=== PATIENT | male | born 1945 | race Caucasian/White ===

== ENCOUNTER 2018-07-05 08:37 | Inpatient (IN) | payer MEDICARE, OTHER ==
[2018-07-05] MEDS ORDERED: IODIXANOL LOCM 100 ML BTL (11:04)
[2018-07-05] MEDS ORDERED: LIDOCAINE 1% (MDV) 20 ML INJ (11:04)
[2018-07-05] MEDS ORDERED: HEPARIN 1000 UNITS/ML 10 ML INJ (11:04)
[2018-07-05] MEDS ORDERED: VERAPAMIL 5 MG INJ (11:05)
[2018-07-05] MEDS ORDERED: MIDAZOLAM 1 MG/ML 2 ML INJ (11:05)
[2018-07-05] MEDS ORDERED: FENTAnyl 50 MCG/ML VIAL (11:05)
[2018-07-05] MEDS ORDERED: NITROGLYCERIN (IC) 100 MCG/ML INJ (11:05)
[2018-07-05] MEDS ORDERED: BIVALIRUDIN 250MG /NS 50 ML 50 ML IVPB (12:06)
[2018-07-05] MEDS ORDERED: CLOPIDOGREL 300 MG TAB (12:14)
[2018-07-05] MEDS ORDERED: hydrALAzine 20 MG INJ IV ×3 (13:30→18:00)
[2018-07-05] MEDS: ISOSORBIDE DINITRATE 20 MG TAB PO (13:52)
[2018-07-05 16:50] LABS: ADD MAN DIFF? NO
[2018-07-05 16:52] LABS: WHITE BLOOD COUNT 7.8 10^3/ul (4.8-10.8)
[2018-07-05 16:52] LABS: BASOPHILS % 0.3 % (0.0-2.0); EOSINOPHILS # 0.1 10^3/ul (0.0-0.5); EOSINOPHILS % 0.8 % (0.0-7.0); HEMATOCRIT 24.4 % (42.0-52.0); HEMOGLOBIN 8.2 g/dl (14.0-18.0); LYMPHOCYTES # 1.8 10^3/ul (0.8-2.9); LYMPHOCYTES % 23.4 % (15.0-51.0); MEAN CORPUSCULAR HGB CONC 33.6 g/dl (32.0-37.0); MEAN CORPUSCULAR VOLUME 89.4 fl (82.0-101.0); MEAN PLATELET VOLUME 10.2 fl (7.4-10.4); MONOCYTE # 0.5 10^3/ul (0.3-0.9); MONOCYTES % 6.3 % (0.0-11.0); NEUTROPHIL # 5.3 10^3/ul (1.6-7.5); NEUTROPHILS % 67.8 % (39.0-77.0); PLATELET COUNT 136 10^3/UL (140-415); RED BLOOD COUNT 2.73 10^6/ul (4.70-6.10); RED CELL DISTRIBUTION WIDTH 15.6 % (11.5-14.5)
[2018-07-05 16:56] LABS: HOLD TRANSMISSIONS 1
[2018-07-05] MEDS ORDERED: GLUCOSE GEL 15 GRAM TUBE BUCCAL (17:00)
[2018-07-05] MEDS ORDERED: DEXTROSE 50% 50 ML SYRINGE IV ×2 (17:00)
[2018-07-05] MEDS ORDERED: GLUCAGON 1 MG INJ IM (17:00)
[2018-07-05] MEDS ORDERED: GLUCOSE GEL 15 GRAM TUBE PO ×2 (17:00)
[2018-07-05] MEDS: CEFAZOLIN 2 GM/50 ML (PMX) 50 ML IVPB (17:00)
[2018-07-05 17:06] LABS: ALANINE AMINOTRANSFERASE 19 IU/L (13-69); ALBUMIN 3.3 g/dl (3.3-4.9); ALKALINE PHOSPHATASE 107 IU/L (42-121); ANION GAP 11 (5-13); ASPARTATE AMINO TRANSFERASE 16 IU/L (15-46); BILIRUBIN,INDIRECT 0.1 mg/dl (0-1.1); CALCIUM 8.9 mg/dl (8.4-10.2); CARBON DIOXIDE 27 mmol/L (21-31); GLUCOSE 133 mg/dl (70-220); POTASSIUM 4.4 mmol/L (3.5-5.1); TOTAL PROTEIN 6.3 g/dl (6.1-8.1)
[2018-07-05 17:26] LABS: CHLORIDE 96 mmol/L (97-110); SODIUM 134 mmol/L (135-144)
[2018-07-05 17:27] LABS: BILIRUBIN,TOTAL 0.1 mg/dl (0.2-1.3); BLOOD UREA NITROGEN 32 mg/dl (7-20); CREATININE 4.64 mg/dl (0.61-1.24)
[2018-07-05] MEDS: INSULIN ASPART [NOVOLOG] 3 ML PEN SC (17:55)
[2018-07-05] MEDS ORDERED: INSULIN ASPART [NOVOLOG] 3 ML PEN SC (18:00)
[2018-07-05] MEDS: ASPIRIN 81 MG TAB PO (18:07)
[2018-07-05 22:05] LABS: HEPATITIS B SURFACE ANTIGEN NEGATIVE (NEGATIVE)
[2018-07-06] MEDS: HEPARIN 1000 UNITS/ML 10 ML INJ CATHETER (00:36)
[2018-07-06] MEDS: ISOSORBIDE DINITRATE 20 MG TAB PO ×4 (00:56→21:00)
[2018-07-06] MEDS: ATORVASTATIN 80 MG TAB PO ×2 (00:57→21:00)
[2018-07-06] MEDS: METOPROLOL 25 MG TAB PO (00:57)
[2018-07-06] MEDS: INSULIN ASPART [NOVOLOG] 3 ML PEN SC ×5 (01:01→21:00)
[2018-07-06] MEDS: ACCU-CHEK XX (02:00)
[2018-07-06 05:40] LABS: ADD MAN DIFF? NO
[2018-07-06 05:52] LABS: BASOPHIL # 0.1 10^3/ul (0.0-0.1); BASOPHILS % 0.6 % (0.0-2.0); EOSINOPHILS # 0.1 10^3/ul (0.0-0.5); HEMATOCRIT 26.9 % (42.0-52.0); HEMOGLOBIN 8.8 g/dl (14.0-18.0); LYMPHOCYTES # 1.4 10^3/ul (0.8-2.9); LYMPHOCYTES % 16.5 % (15.0-51.0); MEAN CORPUSCULAR HEMOGLOBIN 29.5 pg (29.0-33.0); MEAN CORPUSCULAR HGB CONC 32.7 g/dl (32.0-37.0); MEAN CORPUSCULAR VOLUME 90.3 fl (82.0-101.0); MEAN PLATELET VOLUME 10.4 fl (7.4-10.4); MONOCYTE # 0.6 10^3/ul (0.3-0.9); MONOCYTES % 7.1 % (0.0-11.0); NEUTROPHILS % 73.5 % (39.0-77.0); PLATELET COUNT 155 10^3/UL (140-415); RED BLOOD COUNT 2.98 10^6/ul (4.70-6.10); RED CELL DISTRIBUTION WIDTH 15.3 % (11.5-14.5)
[2018-07-06 05:52] LABS: WHITE BLOOD COUNT 8.2 10^3/ul (4.8-10.8)
[2018-07-06 06:38] LABS: ANION GAP 12 (5-13); BLOOD UREA NITROGEN 16 mg/dl (7-20); CALCIUM 9.1 mg/dl (8.4-10.2); CARBON DIOXIDE 30 mmol/L (21-31); CHLORIDE 98 mmol/L (97-110); CREATININE 2.97 mg/dl (0.61-1.24); GLUCOSE 126 mg/dl (70-220); MAGNESIUM 2.1 mg/dl (1.7-2.5); PHOSPHORUS 3.2 mg/dl (2.5-4.9); POTASSIUM 4.6 mmol/L (3.5-5.1); SODIUM 140 mmol/L (135-144)
[2018-07-06] MEDS: ASPIRIN 81 MG TAB PO (08:07)
[2018-07-06] MEDS: METOPROLOL 50 MG TAB PO ×2 (08:07→21:00)
[2018-07-06] MEDS: ACETAMINOPHEN 325 MG TAB PO (12:01)
[2018-07-06] MEDS: morphine 2 MG INJ IV (13:24)
[2018-07-06] MEDS ORDERED: HYDROCODONE/APAP (5/325) TAB PO (13:30)
[2018-07-06] MEDS: SOD CHLORIDE 0.9% 100 ML (16:19)
[2018-07-06] MEDS: IODIXANOL LOCM 100 ML BTL (16:19)
[2018-07-07] MEDS: NORepinephrine 8MG/250 ML (PMX 250 ML IV (00:30)
[2018-07-07] MEDS: ACCU-CHEK XX ×13 (02:00→23:00)
[2018-07-07] MEDS: INSULIN HUMAN REGULAR 100 UNIT in SOD CHLORIDE 0.9% 99 ML IVPB (02:52)
[2018-07-07 06:04] LABS: ADD MAN DIFF? NO
[2018-07-07 06:10] LABS: BASOPHILS % 0.4 % (0.0-2.0); EOSINOPHILS # 0.2 10^3/ul (0.0-0.5); EOSINOPHILS % 1.5 % (0.0-7.0); HEMATOCRIT 25.9 % (42.0-52.0); HEMOGLOBIN 8.4 g/dl (14.0-18.0); LYMPHOCYTES # 1.9 10^3/ul (0.8-2.9); LYMPHOCYTES % 19.6 % (15.0-51.0); MEAN CORPUSCULAR HEMOGLOBIN 29.5 pg (29.0-33.0); MEAN CORPUSCULAR HGB CONC 32.4 g/dl (32.0-37.0); MEAN CORPUSCULAR VOLUME 90.9 fl (82.0-101.0); MEAN PLATELET VOLUME 11.2 fl (7.4-10.4); MONOCYTE # 0.7 10^3/ul (0.3-0.9); MONOCYTES % 7.3 % (0.0-11.0); NEUTROPHIL # 6.7 10^3/ul (1.6-7.5); NEUTROPHILS % 69.4 % (39.0-77.0); PLATELET COUNT 153 10^3/UL (140-415); RED BLOOD COUNT 2.85 10^6/ul (4.70-6.10); RED CELL DISTRIBUTION WIDTH 15.3 % (11.5-14.5)
[2018-07-07 06:10] LABS: WHITE BLOOD COUNT 9.7 10^3/ul (4.8-10.8)
[2018-07-07] MEDS ORDERED: HEPARIN 1000 UNITS/ML 10 ML INJ ×3 (06:40→09:00)
[2018-07-07] MEDS: ASPIRIN 600 MG SUPP PR (07:00)
[2018-07-07] MEDS: MILRINONE LACTATE 2 MG in SOD CHLORIDE 0.9% 50 ML IV (07:00)
[2018-07-07] MEDS ORDERED: EPINEPHrine 4 MG in DEXTROSE 5% 246 ML IV (07:00)
[2018-07-07] MEDS: HEPARIN (10000 UNITS/ML) 10,000 UNIT, MILRINONE LACTATE 10 MG in SOD CHLORIDE 0.9% 1,00... SC (07:00)
[2018-07-07] MEDS ORDERED: MIDAZOLAM 5 ML ×2 (07:06→09:35)
[2018-07-07] MEDS ORDERED: PHENYLephrine (100 MCG/ML) 5ML SYG ×2 (07:09→09:40)
[2018-07-07 07:12] LABS: ANION GAP 15 (5-13); BLOOD UREA NITROGEN 35 mg/dl (7-20); CARBON DIOXIDE 27 mmol/L (21-31); CHLORIDE 93 mmol/L (97-110); CREATININE 4.95 mg/dl (0.61-1.24); GLUCOSE 157 mg/dl (70-220); MAGNESIUM 2.3 mg/dl (1.7-2.5); PHOSPHORUS 5.2 mg/dl (2.5-4.9); POTASSIUM 4.9 mmol/L (3.5-5.1); SODIUM 135 mmol/L (135-144)
[2018-07-07] MEDS ORDERED: MAGNESIUM SULFATE (MG) 50% 10 ML INJ (07:12)
[2018-07-07] MEDS ORDERED: POTASSIUM CHLORIDE 40 MEQ INJ (07:12)
[2018-07-07] MEDS ORDERED: LIDOCAINE 100 MG SYRINGE (07:13)
[2018-07-07] MEDS ORDERED: CA CHLORIDE 10% 10 ML SYRINGE (07:13)
[2018-07-07] MEDS ORDERED: NA BICARBONATE 8.4% 50 ML SYG ×2 (07:13→23:46)
[2018-07-07] MEDS ORDERED: PHENYLephrine 10 MG INJ ×2 (07:13→13:05)
[2018-07-07] MEDS ORDERED: ALBUMIN HUMAN 25% 100 ML (07:14)
[2018-07-07] MEDS ORDERED: AMINOCAPROIC ACID 5 GM INJ ×2 (07:14→10:34)
[2018-07-07] MEDS ORDERED: MANNITOL 20% 500 ML (07:15)
[2018-07-07 07:42] LABS: INR 1.05; PROTIME 13.8 Sec (11.9-14.9); PT RATIO 1.1
[2018-07-07 07:43] LABS: PARTIAL THROMBOPLASTIN TIME 43.9 Sec (23.0-35.0)
[2018-07-07] MEDS ORDERED: CEFAZOLIN 1 GM INJ ×2 (08:35→10:40)
[2018-07-07] MEDS: ASPIRIN 81 MG TAB PO (09:00)
[2018-07-07] MEDS: VANCOMYCIN 1 GM INJ ×2 (09:11→09:56)
[2018-07-07 09:12] LABS: IMMEDIATE SPIN CROSSMATCH 1
[2018-07-07] MEDS: PAPAVERINE 60 MG INJ (09:12)
[2018-07-07] MEDS ORDERED: FUROSEMIDE 10 ML (09:38)
[2018-07-07] MEDS: SOD CHLORIDE 0.9% 250 ML IV* (09:38)
[2018-07-07] MEDS ORDERED: NITROGLYCERIN 50 MG/D5W 250 ML BTL (10:40)
[2018-07-07] MEDS ORDERED: INSULIN REGULAR, HUMAN 100 UNIT/1 ML 3ML VIAL (10:40)
[2018-07-07] MEDS ORDERED: ISOFLURANE 15 MIN (10:40)
[2018-07-07] MEDS ORDERED: DOPamine-D5W 1.6 MG/ML 250 ML (10:40)
[2018-07-07] MEDS ORDERED: ROCURONIUM 50 MG INJ (10:43)
[2018-07-07] MEDS ORDERED: LIDOCAINE 2% (SDV) 5 ML INJ (10:43)
[2018-07-07] MEDS ORDERED: PROTAMINE 250 MG INJ (10:43)
[2018-07-07] MEDS ORDERED: ETOMIDATE 20 MG INJ (10:43)
[2018-07-07 11:50] LABS: TYPE AND SCREEN 1
[2018-07-07 11:50] LABS: IMMEDIATE SPIN CROSSMATCH 1 4
[2018-07-07] MEDS ORDERED: NEOMYC/POLYMYX/BACIT 3.5GM OPH OINT (11:53)
[2018-07-07] MEDS ORDERED: OXYCODONE/ACETAMINOPHEN (5/325) TAB PO (12:30)
[2018-07-07] MEDS ORDERED: HYDROmorphONE 0.5 MG/0.5 ML SYG IV (12:30)
[2018-07-07] MEDS ORDERED: DEXTROSE 50% 50 ML SYRINGE IV ×2 (12:30)
[2018-07-07] MEDS: ALBUMIN HUMAN 5% 250 ML IV (12:30)
[2018-07-07] MEDS: CEFAZOLIN 1 GM/50 ML (PMX) 50 ML IVPB (12:30)
[2018-07-07] MEDS ORDERED: DOPamine-D5W 1.6 MG/ML 250 ML IV (12:30)
[2018-07-07] MEDS ORDERED: ONDANSETRON 4 MG INJ IV (12:30)
[2018-07-07] MEDS: PHENYLephrine 20MG IN 250 ML 250 ML IV ×4 (12:30→18:31)
[2018-07-07] MEDS ORDERED: NITROGLYCERIN 50 MG/D5W (PMX) 250 ML IV ×2 (12:30→13:00)
[2018-07-07] MEDS ORDERED: ALBUMIN HUMAN 5% 250 ML (12:33)
[2018-07-07 13:32] LABS: ADD MAN DIFF? NO
[2018-07-07 13:34] LABS: BASOPHIL # 0.1 10^3/ul (0.0-0.1); BASOPHILS % 0.4 % (0.0-2.0); EOSINOPHILS # 0.2 10^3/ul (0.0-0.5); EOSINOPHILS % 0.9 % (0.0-7.0); HEMATOCRIT 26.6 % (42.0-52.0); HEMOGLOBIN 8.9 g/dl (14.0-18.0); LYMPHOCYTES # 2.7 10^3/ul (0.8-2.9); MEAN CORPUSCULAR HGB CONC 33.5 g/dl (32.0-37.0); MEAN CORPUSCULAR VOLUME 89.6 fl (82.0-101.0); MONOCYTE # 1.1 10^3/ul (0.3-0.9); MONOCYTES % 4.6 % (0.0-11.0); NEUTROPHIL # 19.6 10^3/ul (1.6-7.5); PLATELET COUNT 149 10^3/UL (140-415); RED BLOOD COUNT 2.97 10^6/ul (4.70-6.10); RED CELL DISTRIBUTION WIDTH 14.8 % (11.5-14.5)
[2018-07-07 13:34] LABS: WHITE BLOOD COUNT 24.5 10^3/ul (4.8-10.8)
[2018-07-07] MEDS: CEFAZOLIN 2 GM/50 ML (PMX) 50 ML IVPB (13:41)
[2018-07-07 13:49] LABS: AADO2 Arterial 169.7 mmHg (7.0-24.0); Allen Test ACCEPTAB; Arterial Blood Gas Oxygen Sat 98.7 mmHG (95.0-100.0); Arterial COHb 0.2 % (0.0-3.0); Arterial Fraction of Oxyhgb 98.1 % (93.0-99.0); Arterial HCO3 22.2 mmol/L (22.0-26.0); Arterial MetHb 0.4 % (0.0-1.5); Arterial pCO2 44.9 mmhg (35-45); MODE VENT - AC; Site A-Line
[2018-07-07 13:54] LABS: INR 1.27; PT RATIO 1.3
[2018-07-07 13:55] LABS: PARTIAL THROMBOPLASTIN TIME 35.1 Sec (23.0-35.0)
[2018-07-07 13:56] LABS: ANION GAP 18 (5-13); BLOOD UREA NITROGEN 29 mg/dl (7-20); CALCIUM 8.7 mg/dl (8.4-10.2); CARBON DIOXIDE 21 mmol/L (21-31); CHLORIDE 100 mmol/L (97-110); CREATININE 4.54 mg/dl (0.61-1.24); GLUCOSE 150 mg/dl (70-220); MAGNESIUM 3.9 mg/dl (1.7-2.5); POTASSIUM 3.6 mmol/L (3.5-5.1); SODIUM 139 mmol/L (135-144)
[2018-07-07] MEDS ORDERED: NORepinephrine 8MG/250 ML (PMX 250 ML IV (14:00)
[2018-07-07] MEDS: DOPamine-D5W 1.6 MG/ML 250 ML IV (14:39)
[2018-07-07] MEDS: INSULIN HUMAN REGULAR 100 UNIT in SOD CHLORIDE 0.9% 99 ML IV (14:40)
[2018-07-07] MEDS: POTASSIUM CHLORIDE 40 MEQ, CALCIUM CHLORIDE 10% 1 GM in DEXTROSE 5%-0.225% NACL 1,000 ML IV (16:13)
[2018-07-07 18:50] LABS: ADD MAN DIFF? NO
[2018-07-07 18:52] LABS: WHITE BLOOD COUNT 17.2 10^3/ul (4.8-10.8)
[2018-07-07 18:52] LABS: BASOPHIL # 0.1 10^3/ul (0.0-0.1); BASOPHILS % 0.3 % (0.0-2.0); EOSINOPHILS # 0.2 10^3/ul (0.0-0.5); EOSINOPHILS % 0.9 % (0.0-7.0); HEMATOCRIT 24.8 % (42.0-52.0); HEMOGLOBIN 8.3 g/dl (14.0-18.0); LYMPHOCYTES # 0.9 10^3/ul (0.8-2.9); LYMPHOCYTES % 5.3 % (15.0-51.0); MEAN CORPUSCULAR HEMOGLOBIN 29.7 pg (29.0-33.0); MEAN CORPUSCULAR HGB CONC 33.5 g/dl (32.0-37.0); MEAN CORPUSCULAR VOLUME 88.9 fl (82.0-101.0); MEAN PLATELET VOLUME 10.2 fl (7.4-10.4); MONOCYTE # 0.9 10^3/ul (0.3-0.9); NEUTROPHIL # 14.9 10^3/ul (1.6-7.5); NEUTROPHILS % 86.4 % (39.0-77.0); PLATELET COUNT 139 10^3/UL (140-415); RED BLOOD COUNT 2.79 10^6/ul (4.70-6.10); RED CELL DISTRIBUTION WIDTH 15.2 % (11.5-14.5)
[2018-07-07 19:08] LABS: ANION GAP 16 (5-13); BLOOD UREA NITROGEN 30 mg/dl (7-20); CALCIUM 8.6 mg/dl (8.4-10.2); CARBON DIOXIDE 19 mmol/L (21-31); CHLORIDE 99 mmol/L (97-110); CREATININE 4.98 mg/dl (0.61-1.24); GLUCOSE 202 mg/dl (70-220); MAGNESIUM 3.5 mg/dl (1.7-2.5); POTASSIUM 3.5 mmol/L (3.5-5.1); SODIUM 134 mmol/L (135-144)
[2018-07-07 19:12] LABS: PROTIME 15.3 Sec (11.9-14.9); PT RATIO 1.2
[2018-07-07 19:13] LABS: PARTIAL THROMBOPLASTIN TIME 34.7 Sec (23.0-35.0)
[2018-07-07] MEDS: FAMOTIDINE 20 MG INJ IV (20:26)
[2018-07-07 20:44] LABS: Arterial Base Excess -5.1 mmol/L (-3.0-3); Arterial Blood Gas Oxygen Sat 97.8 mmHG (95.0-100.0); Arterial COHb 0.3 % (0.0-3.0); Arterial Fraction of Oxyhgb 96.7 % (93.0-99.0); Arterial HCO3 19.9 mmol/L (22.0-26.0); Arterial MetHb 0.8 % (0.0-1.5); Arterial pCO2 36.2 mmhg (35-45); Blood Gas Mean Airway Pressure 14; MODE VENT - AC; Site A-Line
[2018-07-07] MEDS: ATORVASTATIN 80 MG TAB PO (21:00)
[2018-07-07] MEDS: HYDROmorphONE 0.5 MG/0.5 ML SYG IV (22:38)
[2018-07-07 23:35] LABS: AADO2 Arterial 143.8 mmHg (7.0-24.0); Arterial Base Excess -7.3 mmol/L (-3.0-3); Arterial COHb 0.3 % (0.0-3.0); Arterial Fraction of Oxyhgb 95.1 % (93.0-99.0); Arterial HCO3 18.8 mmol/L (22.0-26.0); Arterial MetHb 0.6 % (0.0-1.5); Arterial pCO2 39.8 mmhg (35-45); MODE VENT - CPAP; Site A-Line
[2018-07-07] MEDS: NA BICARBONATE 8.4% 50 ML SYG IV (23:52)
[2018-07-08] MEDS: ACCU-CHEK XX ×24 (00:21→23:21)
[2018-07-08 01:12] LABS: ADD MAN DIFF? NO
[2018-07-08 01:17] LABS: WHITE BLOOD COUNT 15.7 10^3/ul (4.8-10.8)
[2018-07-08 01:17] LABS: BASOPHIL # 0.1 10^3/ul (0.0-0.1); BASOPHILS % 0.4 % (0.0-2.0); EOSINOPHILS # 0.2 10^3/ul (0.0-0.5); EOSINOPHILS % 1.2 % (0.0-7.0); HEMATOCRIT 23.7 % (42.0-52.0); HEMOGLOBIN 7.7 g/dl (14.0-18.0); LYMPHOCYTES # 0.8 10^3/ul (0.8-2.9); LYMPHOCYTES % 5.4 % (15.0-51.0); MEAN CORPUSCULAR HEMOGLOBIN 29.6 pg (29.0-33.0); MEAN CORPUSCULAR HGB CONC 32.5 g/dl (32.0-37.0); MEAN CORPUSCULAR VOLUME 91.2 fl (82.0-101.0); MEAN PLATELET VOLUME 11.5 fl (7.4-10.4); MONOCYTE # 1.4 10^3/ul (0.3-0.9); MONOCYTES % 9.1 % (0.0-11.0); NEUTROPHIL # 12.8 10^3/ul (1.6-7.5); NEUTROPHILS % 81.9 % (39.0-77.0); PLATELET COUNT 143 10^3/UL (140-415); RED CELL DISTRIBUTION WIDTH 15.6 % (11.5-14.5)
[2018-07-08] MEDS: CEFAZOLIN 1 GM/50 ML (PMX) 50 ML IVPB ×2 (01:17→12:48)
[2018-07-08 01:19] LABS: AADO2 Arterial 115.6 mmHg (7.0-24.0); Arterial Base Excess -4.9 mmol/L (-3.0-3); Arterial Blood Gas Oxygen Sat 94.6 mmHG (95.0-100.0); Arterial COHb 0.3 % (0.0-3.0); Arterial Fraction of Oxyhgb 93.7 % (93.0-99.0); Arterial HCO3 21.9 mmol/L (22.0-26.0); Arterial MetHb 0.6 % (0.0-1.5); Arterial pCO2 48.9 mmhg (35-45); MODE NASAL CANNULA; Site A-Line
[2018-07-08 01:34] LABS: MAGNESIUM 3.2 mg/dl (1.7-2.5)
[2018-07-08 01:34] LABS: ANION GAP 17 (5-13); BLOOD UREA NITROGEN 32 mg/dl (7-20); CALCIUM 8.6 mg/dl (8.4-10.2); CARBON DIOXIDE 21 mmol/L (21-31); CHLORIDE 98 mmol/L (97-110); CREATININE 5.14 mg/dl (0.61-1.24); GLUCOSE 91 mg/dl (70-220); POTASSIUM 4.7 mmol/L (3.5-5.1); SODIUM 136 mmol/L (135-144)
[2018-07-08] MEDS: NORepinephrine 8MG/250 ML (PMX 250 ML IV (01:43)
[2018-07-08] MEDS: PHENYLephrine 20MG IN 250 ML 250 ML IV (01:45)
[2018-07-08] MEDS: DOPamine-D5W 1.6 MG/ML 250 ML IV (02:13)
[2018-07-08 03:04] LABS: AADO2 Arterial 150.6 mmHg (7.0-24.0); Arterial Base Excess -5.5 mmol/L (-3.0-3); Arterial Blood Gas Oxygen Sat 95.6 mmHG (95.0-100.0); Arterial COHb 0.3 % (0.0-3.0); Arterial Fraction of Oxyhgb 94.6 % (93.0-99.0); Arterial HCO3 20.3 mmol/L (22.0-26.0); Arterial MetHb 0.7 % (0.0-1.5); Arterial pCO2 40.8 mmhg (35-45); Blood Gas IEPAP 15/5; Blood Gas PS 10; MODE MASK - BIPAP; Site A-Line
[2018-07-08] MEDS: INSULIN HUMAN REGULAR 100 UNIT in SOD CHLORIDE 0.9% 99 ML IV (03:18)
[2018-07-08 04:45] LABS: ADD MAN DIFF? NO
[2018-07-08 04:48] LABS: WHITE BLOOD COUNT 16.5 10^3/ul (4.8-10.8)
[2018-07-08 04:48] LABS: BASOPHIL # 0.1 10^3/ul (0.0-0.1); BASOPHILS % 0.4 % (0.0-2.0); EOSINOPHILS # 0.2 10^3/ul (0.0-0.5); EOSINOPHILS % 0.9 % (0.0-7.0); HEMATOCRIT 23.5 % (42.0-52.0); HEMOGLOBIN 7.7 g/dl (14.0-18.0); LYMPHOCYTES # 0.9 10^3/ul (0.8-2.9); LYMPHOCYTES % 5.7 % (15.0-51.0); MEAN CORPUSCULAR HEMOGLOBIN 29.7 pg (29.0-33.0); MEAN CORPUSCULAR HGB CONC 32.8 g/dl (32.0-37.0); MEAN CORPUSCULAR VOLUME 90.7 fl (82.0-101.0); MONOCYTE # 1.5 10^3/ul (0.3-0.9); MONOCYTES % 9.1 % (0.0-11.0); NEUTROPHIL # 13.6 10^3/ul (1.6-7.5); NEUTROPHILS % 82.3 % (39.0-77.0); PLATELET COUNT 146 10^3/UL (140-415); RED BLOOD COUNT 2.59 10^6/ul (4.70-6.10); RED CELL DISTRIBUTION WIDTH 15.8 % (11.5-14.5)
[2018-07-08 05:01] LABS: AADO2 Arterial 141.1 mmHg (7.0-24.0); Arterial Base Excess -6.7 mmol/L (-3.0-3); Arterial COHb 0.3 % (0.0-3.0); Arterial Fraction of Oxyhgb 96.2 % (93.0-99.0); Arterial HCO3 18.8 mmol/L (22.0-26.0); Arterial MetHb 0.5 % (0.0-1.5); Arterial pCO2 37.5 mmhg (35-45); Blood Gas IEPAP 15/5; Blood Gas PS 10; MODE MASK - BIPAP; Site A-Line
[2018-07-08 05:07] LABS: INR 1.26; PROTIME 15.9 Sec (11.9-14.9); PT RATIO 1.2
[2018-07-08 05:13] LABS: ANION GAP 18 (5-13); BLOOD UREA NITROGEN 33 mg/dl (7-20); CALCIUM 8.8 mg/dl (8.4-10.2); CARBON DIOXIDE 20 mmol/L (21-31); CHLORIDE 98 mmol/L (97-110); CREATININE 5.62 mg/dl (0.61-1.24); GLUCOSE 117 mg/dl (70-220); MAGNESIUM 3.2 mg/dl (1.7-2.5); PHOSPHORUS 6.3 mg/dl (2.5-4.9); SODIUM 136 mmol/L (135-144)
[2018-07-08] MEDS ORDERED: PROPOFOL 100 ML (05:33)
[2018-07-08] MEDS: PROPOFOL 100 ML IV ×2 (06:00→17:58)
[2018-07-08] MEDS ORDERED: HEPARIN 1000 UNITS/ML 10 ML INJ (06:05)
[2018-07-08] MEDS: POTASSIUM CHLORIDE 40 MEQ, CALCIUM CHLORIDE 10% 1 GM in DEXTROSE 5%-0.225% NACL 1,000 ML IV ×2 (07:10→09:36)
[2018-07-08] MEDS: HEPARIN (100 UNITS/ML) 5 ML SYG CATHETER (07:55)
[2018-07-08] MEDS: ASPIRIN 81 MG TAB PO ×2 (08:19→13:33)
[2018-07-08 08:36] LABS: AADO2 Arterial 360.1 mmHg (7.0-24.0); Arterial Base Excess -6.6 mmol/L (-3.0-3); Arterial Blood Gas Oxygen Sat 99.2 mmHG (95.0-100.0); Arterial COHb 0.1 % (0.0-3.0); Arterial Fraction of Oxyhgb 98.2 % (93.0-99.0); Arterial MetHb 0.9 % (0.0-1.5); Arterial pCO2 31.9 mmhg (35-45); MODE VENT - AC; Site A-Line
[2018-07-08] MEDS: FAMOTIDINE 20 MG INJ IV (08:41)
[2018-07-08] MEDS: EPOETIN 10000 UNITS/1 ML INJ (ESRD) SC (08:43)
[2018-07-08] MEDS: HEPARIN 1000 UNITS/ML 10 ML INJ CATHETER (12:22)
[2018-07-08 12:41] LABS: HEMATOCRIT 23.5 % (42.0-52.0)
[2018-07-08] MEDS: FENTAnyl (DRIP) 1000 mcg/100mL 100 ML IV (13:28)
[2018-07-08] MEDS: ACETAMINOPHEN 325 MG TAB PO (21:00)
[2018-07-08] MEDS: ATORVASTATIN 80 MG TAB PO (21:00)
[2018-07-09] MEDS: ACCU-CHEK XX ×24 (00:39→22:36)
[2018-07-09 05:09] LABS: AADO2 Arterial 151.7 mmHg (7.0-24.0); Arterial Base Excess -2.4 mmol/L (-3.0-3); Arterial Blood Gas Oxygen Sat 96.8 mmHG (95.0-100.0); Arterial COHb 0.4 % (0.0-3.0); Arterial Fraction of Oxyhgb 95.7 % (93.0-99.0); Arterial HCO3 21.3 mmol/L (22.0-26.0); Arterial MetHb 0.7 % (0.0-1.5); Arterial pCO2 31.6 mmhg (35-45); MODE VENT - AC; Site A-Line
[2018-07-09 05:18] LABS: ADD MAN DIFF? NO
[2018-07-09 05:21] LABS: ABNORMAL IP MESSAGE 1; BASOPHIL # 0.1 10^3/ul (0.0-0.1); BASOPHILS % 0.3 % (0.0-2.0); EOSINOPHILS % 0.2 % (0.0-7.0); LYMPHOCYTES # 1.3 10^3/ul (0.8-2.9); MEAN CORPUSCULAR HEMOGLOBIN 29.8 pg (29.0-33.0); MEAN CORPUSCULAR HGB CONC 32.5 g/dl (32.0-37.0); MEAN CORPUSCULAR VOLUME 91.7 fl (82.0-101.0); MONOCYTE # 1.1 10^3/ul (0.3-0.9); NEUTROPHIL # 15.4 10^3/ul (1.6-7.5); NEUTROPHILS % 85.6 % (39.0-77.0); PLATELET COUNT 135 10^3/UL (140-415); POSITIVE DIFF @See below; RED BLOOD COUNT 2.18 10^6/ul (4.70-6.10); RED CELL DISTRIBUTION WIDTH 15.9 % (11.5-14.5)
[2018-07-09] MEDS: PROPOFOL 100 ML IV ×2 (05:30→09:56)
[2018-07-09 05:41] LABS: HEMOGLOBIN 6.5 g/dl (14.0-18.0)
[2018-07-09 05:48] LABS: LACTIC ACID 1.4 mmol/L (0.5-2.0)
[2018-07-09 05:53] LABS: ANION GAP 17 (5-13); BLOOD UREA NITROGEN 27 mg/dl (7-20); CALCIUM 8.3 mg/dl (8.4-10.2); CARBON DIOXIDE 22 mmol/L (21-31); CHLORIDE 95 mmol/L (97-110); CREATININE 4.92 mg/dl (0.61-1.24); GLUCOSE 139 mg/dl (70-220); MAGNESIUM 2.8 mg/dl (1.7-2.5); PHOSPHORUS 5.9 mg/dl (2.5-4.9); POTASSIUM 5.3 mmol/L (3.5-5.1); SODIUM 134 mmol/L (135-144)
[2018-07-09] MEDS: FAMOTIDINE 20 MG INJ IV (07:58)
[2018-07-09] MEDS: NORepinephrine 8MG/250 ML (PMX 250 ML IV (07:59)
[2018-07-09] MEDS: FENTAnyl (DRIP) 1000 mcg/100mL 100 ML IV (07:59)
[2018-07-09] MEDS: ASPIRIN 325 MG TAB PO (08:56)
[2018-07-09] MEDS: CEFEPIME 2GM/50 ML (PMX) 50 ML IVPB (13:42)
[2018-07-09 19:31] LABS: IMMEDIATE SPIN CROSSMATCH 1 2
[2018-07-09] MEDS: HEPARIN 1000 UNITS/ML 10 ML INJ CATHETER (20:36)
[2018-07-09] MEDS: ATORVASTATIN 80 MG TAB PO (21:54)
[2018-07-10] MEDS: ACCU-CHEK XX ×24 (01:30→23:30)
[2018-07-10] MEDS: PROPOFOL 100 ML IV ×2 (01:55→17:30)
[2018-07-10] MEDS: FENTAnyl (DRIP) 1000 mcg/100mL 100 ML IV (05:24)
[2018-07-10 06:22] LABS: ADD MAN DIFF? NO
[2018-07-10 06:31] LABS: WHITE BLOOD COUNT 18.5 10^3/ul (4.8-10.8)
[2018-07-10 06:31] LABS: BASOPHIL # 0.1 10^3/ul (0.0-0.1); BASOPHILS % 0.4 % (0.0-2.0); EOSINOPHILS % 0.2 % (0.0-7.0); HEMATOCRIT 27.3 % (42.0-52.0); HEMOGLOBIN 9.2 g/dl (14.0-18.0); LYMPHOCYTES # 0.8 10^3/ul (0.8-2.9); LYMPHOCYTES % 4.1 % (15.0-51.0); MEAN CORPUSCULAR HEMOGLOBIN 30.3 pg (29.0-33.0); MEAN CORPUSCULAR HGB CONC 33.7 g/dl (32.0-37.0); MEAN CORPUSCULAR VOLUME 89.8 fl (82.0-101.0); MEAN PLATELET VOLUME 11.8 fl (7.4-10.4); MONOCYTE # 0.7 10^3/ul (0.3-0.9); MONOCYTES % 3.7 % (0.0-11.0); NEUTROPHIL # 16.8 10^3/ul (1.6-7.5); NEUTROPHILS % 90.6 % (39.0-77.0); PLATELET COUNT 154 10^3/UL (140-415); RED BLOOD COUNT 3.04 10^6/ul (4.70-6.10)
[2018-07-10] MEDS ORDERED: ETOMIDATE 20 MG INJ (07:00)
[2018-07-10] MEDS ORDERED: ROCURONIUM 50 MG INJ (07:00)
[2018-07-10 07:08] LABS: ANION GAP 16 (5-13); BLOOD UREA NITROGEN 24 mg/dl (7-20); CALCIUM 8.5 mg/dl (8.4-10.2); CARBON DIOXIDE 21 mmol/L (21-31); CHLORIDE 100 mmol/L (97-110); CREATININE 4.23 mg/dl (0.61-1.24); GLUCOSE 125 mg/dl (70-220); MAGNESIUM 2.7 mg/dl (1.7-2.5); PHOSPHORUS 5.7 mg/dl (2.5-4.9); SODIUM 137 mmol/L (135-144)
[2018-07-10 07:15] LABS: LACTIC ACID 1.2 mmol/L (0.5-2.0)
[2018-07-10] MEDS: ASPIRIN 325 MG TAB PO (09:13)
[2018-07-10] MEDS: FAMOTIDINE 20 MG INJ IV (09:13)
[2018-07-10] MEDS: CEFEPIME 2GM/50 ML (PMX) 50 ML IVPB (12:42)
[2018-07-10] MEDS ORDERED: NITROGLYCERIN 50 MG/D5W (PMX) 250 ML IV (15:45)
[2018-07-10] MEDS ORDERED: VANCOMYCIN IV PER PHARMACY XX (17:00)
[2018-07-10] MEDS: EPOETIN 10000 UNITS/1 ML INJ (ESRD) SC (17:33)
[2018-07-10] MEDS: [UNRECOGNIZED DRUG - OTHER] XX (18:08)
[2018-07-10 18:52] LABS: VANCOMYCIN,RANDOM < 5.0 ug/ml
[2018-07-10 19:43] LABS: AADO2 Arterial 161.7 mmHg (7.0-24.0); Arterial Base Excess -3.3 mmol/L (-3.0-3); Arterial Blood Gas Oxygen Sat 95.2 mmHG (95.0-100.0); Arterial COHb 0.3 % (0.0-3.0); Arterial Fraction of Oxyhgb 94.6 % (93.0-99.0); Arterial MetHb 0.3 % (0.0-1.5); Arterial pCO2 35.1 mmhg (35-45); Blood Gas PS 8; MODE VENT - CPAP; Site A-Line
[2018-07-10] MEDS: VANCOMYCIN HCL 1.75 GM in SOD CHLORIDE 0.9% 500 ML IVPB (19:54)
[2018-07-10 20:00] LABS: AADO2 Arterial 400.8 mmHg (7.0-24.0); Arterial Base Excess -6.8 mmol/L (-3.0-3); Arterial Blood Gas Oxygen Sat 99.3 mmHG (95.0-100.0); Arterial COHb 0.2 % (0.0-3.0); Arterial Fraction of Oxyhgb 98.2 % (93.0-99.0); Arterial HCO3 19.6 mmol/L (22.0-26.0); Arterial MetHb 0.9 % (0.0-1.5); Arterial pCO2 44.3 mmhg (35-45); Blood Gas Low PEEP Setting 0 cmH2O; MODE VENT - AC; Site A-Line
[2018-07-10] MEDS: INSULIN HUMAN REGULAR 100 UNIT in SOD CHLORIDE 0.9% 99 ML IV (20:08)
[2018-07-10] MEDS ORDERED: VANCOMYCIN HCL 1.75 GM in SOD CHLORIDE 0.9% 500 ML IVPB (20:30)
[2018-07-11] MEDS: ATORVASTATIN 80 MG TAB PO ×2 (00:16→20:00)
[2018-07-11] MEDS: ACCU-CHEK XX ×25 (01:30→23:39)
[2018-07-11] MEDS: FENTAnyl (DRIP) 1000 mcg/100mL 100 ML IV ×2 (04:01→19:52)
[2018-07-11 05:22] LABS: ADD MAN DIFF? NO
[2018-07-11 05:25] LABS: BASOPHIL # 0.1 10^3/ul (0.0-0.1); BASOPHILS % 0.3 % (0.0-2.0); EOSINOPHILS # 0.1 10^3/ul (0.0-0.5); EOSINOPHILS % 0.3 % (0.0-7.0); HEMATOCRIT 25.2 % (42.0-52.0); HEMOGLOBIN 8.4 g/dl (14.0-18.0); LYMPHOCYTES # 0.8 10^3/ul (0.8-2.9); LYMPHOCYTES % 4.6 % (15.0-51.0); MEAN CORPUSCULAR HEMOGLOBIN 30.1 pg (29.0-33.0); MEAN CORPUSCULAR HGB CONC 33.3 g/dl (32.0-37.0); MEAN CORPUSCULAR VOLUME 90.3 fl (82.0-101.0); MEAN PLATELET VOLUME 11.3 fl (7.4-10.4); MONOCYTE # 0.9 10^3/ul (0.3-0.9); MONOCYTES % 5.1 % (0.0-11.0); NEUTROPHIL # 15.8 10^3/ul (1.6-7.5); NEUTROPHILS % 88.7 % (39.0-77.0); PLATELET COUNT 144 10^3/UL (140-415); RED BLOOD COUNT 2.79 10^6/ul (4.70-6.10); RED CELL DISTRIBUTION WIDTH 15.9 % (11.5-14.5)
[2018-07-11 05:25] LABS: WHITE BLOOD COUNT 17.8 10^3/ul (4.8-10.8)
[2018-07-11 05:53] LABS: ANION GAP 20 (5-13); BLOOD UREA NITROGEN 44 mg/dl (7-20); CALCIUM 8.3 mg/dl (8.4-10.2); CARBON DIOXIDE 18 mmol/L (21-31); CHLORIDE 100 mmol/L (97-110); CREATININE 6.06 mg/dl (0.61-1.24); GLUCOSE 116 mg/dl (70-220); MAGNESIUM 2.9 mg/dl (1.7-2.5); PHOSPHORUS 6.5 mg/dl (2.5-4.9); POTASSIUM 4.9 mmol/L (3.5-5.1); SODIUM 138 mmol/L (135-144)
[2018-07-11] MEDS: PROPOFOL 100 ML IV ×3 (06:31→19:59)
[2018-07-11] MEDS ORDERED: NORepinephrine 4 MG INJ (07:15)
[2018-07-11] MEDS ORDERED: ALBUMIN HUMAN 25% 100 ML (07:18)
[2018-07-11] MEDS: NORepinephrine 8MG/250 ML (PMX 250 ML IV (07:45)
[2018-07-11] MEDS: ALBUMIN HUMAN 25% 100 ML IV (07:49)
[2018-07-11] MEDS: HEPARIN 1000 UNITS/ML 10 ML INJ CATHETER (09:34)
[2018-07-11] MEDS: ASPIRIN 325 MG TAB PO (10:05)
[2018-07-11 11:49] LABS: AADO2 Arterial 151.5 mmHg (7.0-24.0); Allen Test ACCEPTAB; Arterial COHb 0.3 % (0.0-3.0); Arterial Fraction of Oxyhgb 96.4 % (93.0-99.0); Arterial MetHb 0.3 % (0.0-1.5); Arterial pCO2 28.5 mmhg (35-45); MODE VENT - AC; Site Right Radial
[2018-07-11] MEDS: CEFEPIME 2GM/50 ML (PMX) 50 ML IVPB (12:34)
[2018-07-12] MEDS: ACCU-CHEK XX ×23 (01:05→23:29)
[2018-07-12 05:13] LABS: ADD MAN DIFF? NO
[2018-07-12 05:27] LABS: WHITE BLOOD COUNT 18.6 10^3/ul (4.8-10.8)
[2018-07-12 05:27] LABS: BASOPHILS % 0.2 % (0.0-2.0); EOSINOPHILS # 0.1 10^3/ul (0.0-0.5); EOSINOPHILS % 0.6 % (0.0-7.0); HEMATOCRIT 24.6 % (42.0-52.0); HEMOGLOBIN 7.9 g/dl (14.0-18.0); LYMPHOCYTES # 1.3 10^3/ul (0.8-2.9); LYMPHOCYTES % 6.7 % (15.0-51.0); MEAN CORPUSCULAR HEMOGLOBIN 29.8 pg (29.0-33.0); MEAN CORPUSCULAR HGB CONC 32.1 g/dl (32.0-37.0); MEAN CORPUSCULAR VOLUME 92.8 fl (82.0-101.0); MEAN PLATELET VOLUME 10.9 fl (7.4-10.4); MONOCYTES % 5.4 % (0.0-11.0); NEUTROPHILS % 86.3 % (39.0-77.0); PLATELET COUNT 142 10^3/UL (140-415); RED BLOOD COUNT 2.65 10^6/ul (4.70-6.10); RED CELL DISTRIBUTION WIDTH 16.5 % (11.5-14.5)
[2018-07-12 05:46] LABS: ANION GAP 19 (5-13); BLOOD UREA NITROGEN 39 mg/dl (7-20); CALCIUM 8.4 mg/dl (8.4-10.2); CARBON DIOXIDE 18 mmol/L (21-31); CHLORIDE 99 mmol/L (97-110); CREATININE 5.26 mg/dl (0.61-1.24); GLUCOSE 168 mg/dl (70-220); MAGNESIUM 2.7 mg/dl (1.7-2.5); PHOSPHORUS 5.8 mg/dl (2.5-4.9); POTASSIUM 4.8 mmol/L (3.5-5.1); SODIUM 136 mmol/L (135-144)
[2018-07-12 05:46] LABS: VANCOMYCIN,RANDOM 16.7 ug/ml
[2018-07-12] MEDS: ASPIRIN 325 MG TAB PO (08:13)
[2018-07-12] MEDS: FENTAnyl (DRIP) 1000 mcg/100mL 100 ML IV ×2 (08:25→19:42)
[2018-07-12] MEDS: PANTOPRAZOLE (EC) 40 MG TAB PO ×2 (11:14→17:11)
[2018-07-12] MEDS: CEFEPIME 2GM/50 ML (PMX) 50 ML IVPB (11:15)
[2018-07-12 11:50] LABS: TROPONIN-I 0.874 ng/ml (0.000-0.120)
[2018-07-12] MEDS ORDERED: VANCOMYCIN 1 GM 250 ML IVPB (14:00)
[2018-07-12] MEDS: IBUPROFEN 600 MG TAB GTB ×2 (14:15→21:22)
[2018-07-12] MEDS: INSULIN HUMAN REGULAR 100 UNIT in SOD CHLORIDE 0.9% 99 ML IV (15:18)
[2018-07-12] MEDS: PROPOFOL 100 ML IV (17:06)
[2018-07-12] MEDS: EPOETIN 10000 UNITS/1 ML INJ (ESRD) SC (17:12)
[2018-07-12 17:21] LABS: TROPONIN-I 0.839 ng/ml (0.000-0.120)
[2018-07-12] MEDS: ALTEPLASE (CATHFLO) 2 MG INJ CATHETER (17:54)
[2018-07-12] MEDS: ATORVASTATIN 80 MG TAB PO (21:21)
[2018-07-12] MEDS: MEROPENEM 500MG/50 ML (PMX) 50 ML IVPB (21:22)
[2018-07-13] MEDS: ACCU-CHEK XX ×24 (00:36→22:48)
[2018-07-13] MEDS: PROPOFOL 100 ML IV ×2 (05:30→17:30)
[2018-07-13 05:49] LABS: ADD MAN DIFF? NO
[2018-07-13 05:53] LABS: BASOPHILS % 0.2 % (0.0-2.0); EOSINOPHILS # 0.4 10^3/ul (0.0-0.5); EOSINOPHILS % 2.3 % (0.0-7.0); HEMATOCRIT 26.4 % (42.0-52.0); HEMOGLOBIN 8.5 g/dl (14.0-18.0); LYMPHOCYTES # 0.8 10^3/ul (0.8-2.9); LYMPHOCYTES % 4.5 % (15.0-51.0); MEAN CORPUSCULAR HEMOGLOBIN 29.7 pg (29.0-33.0); MEAN CORPUSCULAR HGB CONC 32.2 g/dl (32.0-37.0); MEAN CORPUSCULAR VOLUME 92.3 fl (82.0-101.0); MEAN PLATELET VOLUME 11.2 fl (7.4-10.4); MONOCYTES % 5.6 % (0.0-11.0); NEUTROPHIL # 15.7 10^3/ul (1.6-7.5); NEUTROPHILS % 86.6 % (39.0-77.0); PLATELET COUNT 141 10^3/UL (140-415); RED BLOOD COUNT 2.86 10^6/ul (4.70-6.10); RED CELL DISTRIBUTION WIDTH 16.3 % (11.5-14.5)
[2018-07-13 05:53] LABS: WHITE BLOOD COUNT 18.1 10^3/ul (4.8-10.8)
[2018-07-13] MEDS: PANTOPRAZOLE (EC) 40 MG TAB PO ×2 (05:58→17:51)
[2018-07-13] MEDS: IBUPROFEN 600 MG TAB GTB ×2 (05:59→13:56)
[2018-07-13 07:03] LABS: ANION GAP 18 (5-13); BLOOD UREA NITROGEN 48 mg/dl (7-20); CALCIUM 8.7 mg/dl (8.4-10.2); CARBON DIOXIDE 22 mmol/L (21-31); CHLORIDE 99 mmol/L (97-110); CREATININE 6.46 mg/dl (0.61-1.24); GLUCOSE 133 mg/dl (70-220); MAGNESIUM 2.8 mg/dl (1.7-2.5); PHOSPHORUS 5.7 mg/dl (2.5-4.9); POTASSIUM 4.7 mmol/L (3.5-5.1); SODIUM 139 mmol/L (135-144)
[2018-07-13] MEDS: MEROPENEM 500MG/50 ML (PMX) 50 ML IVPB ×2 (08:24→20:50)
[2018-07-13] MEDS: ASPIRIN 325 MG TAB PO (08:31)
[2018-07-13] MEDS: FENTAnyl (DRIP) 1000 mcg/100mL 100 ML IV (08:31)
[2018-07-13] MEDS: ATORVASTATIN 80 MG TAB PO (20:50)
[2018-07-13] MEDS: INSULIN HUMAN REGULAR 100 UNIT in SOD CHLORIDE 0.9% 99 ML IV (20:54)
[2018-07-13] MEDS: IOHEXOL 300MG/ML 150 ML BTL (22:49)
[2018-07-13] MEDS: SOD CHLORIDE 0.9% 100 ML (22:49)
[2018-07-13] MEDS: IBUPROFEN LIQUID (PED) 20 MG/ML CUP GTB (23:36)
[2018-07-14] MEDS: FENTAnyl (DRIP) 1000 mcg/100mL 100 ML IV (00:01)
[2018-07-14] MEDS: ACCU-CHEK XX ×24 (00:50→23:26)
[2018-07-14] MEDS: PROPOFOL 100 ML IV ×2 (04:32→17:15)
[2018-07-14] MEDS: IBUPROFEN LIQUID (PED) 20 MG/ML CUP GTB ×3 (05:08→21:16)
[2018-07-14] MEDS: LANSOPRAZOLE 30 MG CAP GTB ×2 (05:08→17:22)
[2018-07-14 05:35] LABS: ADD MAN DIFF? NO
[2018-07-14 05:58] LABS: WHITE BLOOD COUNT 13.9 10^3/ul (4.8-10.8)
[2018-07-14 05:58] LABS: BASOPHILS % 0.1 % (0.0-2.0); EOSINOPHILS # 0.5 10^3/ul (0.0-0.5); EOSINOPHILS % 3.3 % (0.0-7.0); HEMATOCRIT 26.3 % (42.0-52.0); HEMOGLOBIN 8.3 g/dl (14.0-18.0); LYMPHOCYTES # 0.9 10^3/ul (0.8-2.9); LYMPHOCYTES % 6.2 % (15.0-51.0); MEAN CORPUSCULAR HEMOGLOBIN 30.1 pg (29.0-33.0); MEAN CORPUSCULAR HGB CONC 31.6 g/dl (32.0-37.0); MEAN CORPUSCULAR VOLUME 95.3 fl (82.0-101.0); MEAN PLATELET VOLUME 11.2 fl (7.4-10.4); MONOCYTE # 0.9 10^3/ul (0.3-0.9); MONOCYTES % 6.1 % (0.0-11.0); NEUTROPHIL # 11.5 10^3/ul (1.6-7.5); NEUTROPHILS % 82.9 % (39.0-77.0); NUCLEATED RED BLOOD CELLS% 0.1 /100WBC (0.0-0.0); PLATELET COUNT 139 10^3/UL (140-415); RED BLOOD COUNT 2.76 10^6/ul (4.70-6.10); RED CELL DISTRIBUTION WIDTH 16.2 % (11.5-14.5)
[2018-07-14 06:06] LABS: ANION GAP 16 (5-13); BLOOD UREA NITROGEN 63 mg/dl (7-20); CALCIUM 8.6 mg/dl (8.4-10.2); CARBON DIOXIDE 24 mmol/L (21-31); CHLORIDE 99 mmol/L (97-110); CREATININE 7.55 mg/dl (0.61-1.24); GLUCOSE 124 mg/dl (70-220); MAGNESIUM 2.8 mg/dl (1.7-2.5); PHOSPHORUS 6.2 mg/dl (2.5-4.9); POTASSIUM 4.9 mmol/L (3.5-5.1); SODIUM 139 mmol/L (135-144)
[2018-07-14] MEDS: LIDOCAINE 1% (MPF) 5 ML VIAL SC (06:30)
[2018-07-14 07:22] LABS: AADO2 Arterial 102.9 mmHg (7.0-24.0); Arterial Base Excess -3.1 mmol/L (-3.0-3); Arterial Blood Gas Oxygen Sat 91.8 mmHG (95.0-100.0); Arterial COHb 0.3 % (0.0-3.0); Arterial Fraction of Oxyhgb 91.2 % (93.0-99.0); Arterial HCO3 21.4 mmol/L (22.0-26.0); Arterial MetHb 0.4 % (0.0-1.5); Arterial pCO2 36.4 mmhg (35-45); Blood Gas PS 14; MODE VENT - SIMV; Site Right Brachial
[2018-07-14] MEDS: ASPIRIN 325 MG TAB PO (08:54)
[2018-07-14] MEDS: MEROPENEM 500MG/50 ML (PMX) 50 ML IVPB ×2 (08:54→21:16)
[2018-07-14] MEDS ORDERED: DEXMEDETOMIDINE HCL 200 MCG in SOD CHLORIDE 0.9% 48 ML IV (13:00)
[2018-07-14] MEDS: ALBUMIN HUMAN 25% 100 ML IV (14:06)
[2018-07-14] MEDS: HEPARIN 1000 UNITS/ML 10 ML INJ CATHETER (15:49)
[2018-07-14] MEDS: DEXMEDETOMIDINE HCL 200 MCG in SOD CHLORIDE 0.9% 48 ML IV (16:24)
[2018-07-14] MEDS: EPOETIN 10000 UNITS/1 ML INJ (ESRD) SC (17:00)
[2018-07-14] MEDS: INSULIN HUMAN REGULAR 100 UNIT in SOD CHLORIDE 0.9% 99 ML IV (21:11)
[2018-07-14] MEDS: ATORVASTATIN 80 MG TAB PO (21:15)
[2018-07-15] MEDS: ACCU-CHEK XX ×24 (00:06→23:00)
[2018-07-15] MEDS: PROPOFOL 100 ML IV ×2 (05:30→17:30)
[2018-07-15] MEDS: IBUPROFEN LIQUID (PED) 20 MG/ML CUP GTB (06:14)
[2018-07-15] MEDS: LANSOPRAZOLE 30 MG CAP GTB ×2 (06:14→18:00)
[2018-07-15 06:44] LABS: ADD MAN DIFF? NO
[2018-07-15 06:46] LABS: BASOPHILS % 0.3 % (0.0-2.0); EOSINOPHILS # 0.4 10^3/ul (0.0-0.5); EOSINOPHILS % 3.4 % (0.0-7.0); HEMOGLOBIN 8.2 g/dl (14.0-18.0); LYMPHOCYTES # 0.8 10^3/ul (0.8-2.9); LYMPHOCYTES % 7.2 % (15.0-51.0); MEAN CORPUSCULAR HEMOGLOBIN 30.1 pg (29.0-33.0); MEAN CORPUSCULAR HGB CONC 31.5 g/dl (32.0-37.0); MEAN CORPUSCULAR VOLUME 95.6 fl (82.0-101.0); MEAN PLATELET VOLUME 11.3 fl (7.4-10.4); MONOCYTE # 0.8 10^3/ul (0.3-0.9); MONOCYTES % 6.9 % (0.0-11.0); NEUTROPHILS % 80.7 % (39.0-77.0); PLATELET COUNT 155 10^3/UL (140-415); RED BLOOD COUNT 2.72 10^6/ul (4.70-6.10); RED CELL DISTRIBUTION WIDTH 16.3 % (11.5-14.5)
[2018-07-15 06:46] LABS: WHITE BLOOD COUNT 11.1 10^3/ul (4.8-10.8)
[2018-07-15] MEDS: DEXMEDETOMIDINE HCL 200 MCG in SOD CHLORIDE 0.9% 48 ML IV (06:49)
[2018-07-15] MEDS: INSULIN HUMAN REGULAR 100 UNIT in SOD CHLORIDE 0.9% 99 ML IV (06:52)
[2018-07-15 07:14] LABS: ANION GAP 11 (5-13); BLOOD UREA NITROGEN 47 mg/dl (7-20); CALCIUM 8.4 mg/dl (8.4-10.2); CARBON DIOXIDE 26 mmol/L (21-31); CHLORIDE 101 mmol/L (97-110); CREATININE 5.35 mg/dl (0.61-1.24); GLUCOSE 175 mg/dl (70-220); MAGNESIUM 2.5 mg/dl (1.7-2.5); PHOSPHORUS 3.2 mg/dl (2.5-4.9); POTASSIUM 4.2 mmol/L (3.5-5.1); SODIUM 138 mmol/L (135-144)
[2018-07-15] MEDS: ASPIRIN 325 MG TAB PO (10:06)
[2018-07-15] MEDS: MEROPENEM 500MG/50 ML (PMX) 50 ML IVPB ×2 (10:06→20:49)
[2018-07-15] MEDS: BALSAM PERU/CASTOR OIL 60 GM TUBE TOP ×2 (10:07→20:50)
[2018-07-15 12:15] LABS: Allen Test ACCEPTAB; Arterial Base Excess 1.6 mmol/L (-3.0-3); Arterial Blood Gas Oxygen Sat 97.3 mmHG (95.0-100.0); Arterial COHb 0.3 % (0.0-3.0); Arterial Fraction of Oxyhgb 96.7 % (93.0-99.0); Arterial HCO3 25.2 mmol/L (22.0-26.0); Arterial MetHb 0.3 % (0.0-1.5); Arterial pCO2 35.8 mmhg (35-45); Blood Gas PS 10; MODE VENT - CPAP; Site Right Radial
[2018-07-15] MEDS: IBUPROFEN 400 MG TAB NGT ×2 (14:00→23:23)
[2018-07-15] MEDS: ATORVASTATIN 80 MG TAB PO (20:49)
[2018-07-16] MEDS: ACCU-CHEK XX ×11 (01:00→10:00)
[2018-07-16] MEDS: LANSOPRAZOLE 30 MG CAP GTB ×2 (05:22→18:00)
[2018-07-16] MEDS: IBUPROFEN 400 MG TAB NGT ×3 (05:23→21:33)
[2018-07-16] MEDS: PROPOFOL 100 ML IV ×2 (07:15→16:39)
[2018-07-16] MEDS: ASPIRIN 325 MG TAB PO (09:00)
[2018-07-16] MEDS: BALSAM PERU/CASTOR OIL 60 GM TUBE TOP ×2 (09:10→21:22)
[2018-07-16] MEDS: MEROPENEM 500MG/50 ML (PMX) 50 ML IVPB ×2 (09:18→21:22)
[2018-07-16] MEDS ORDERED: DEXTROSE 50% 50 ML SYRINGE IV ×2 (10:30)
[2018-07-16] MEDS ORDERED: GLUCOSE GEL 15 GRAM TUBE BUCCAL (10:30)
[2018-07-16] MEDS ORDERED: GLUCOSE GEL 15 GRAM TUBE PO ×2 (10:30)
[2018-07-16] MEDS ORDERED: GLUCAGON 1 MG INJ IM (10:30)
[2018-07-16] MEDS ORDERED: INSULIN ASPART [NOVOLOG] 3 ML PEN SC (11:30)
[2018-07-16] MEDS: INSULIN ASPART [NOVOLOG] 3 ML PEN SC ×3 (13:00→21:31)
[2018-07-16] MEDS: HEPARIN 1000 UNITS/ML 10 ML INJ CATHETER (14:08)
[2018-07-16] MEDS: ATORVASTATIN 80 MG TAB PO (21:22)
[2018-07-17] MEDS: INSULIN ASPART [NOVOLOG] 3 ML PEN SC ×6 (01:33→21:34)
[2018-07-17 05:21] LABS: ADD MAN DIFF? NO
[2018-07-17 05:28] LABS: BASOPHILS % 0.3 % (0.0-2.0); EOSINOPHILS # 0.3 10^3/ul (0.0-0.5); EOSINOPHILS % 2.5 % (0.0-7.0); HEMATOCRIT 29.5 % (42.0-52.0); LYMPHOCYTES # 1.1 10^3/ul (0.8-2.9); LYMPHOCYTES % 9.3 % (15.0-51.0); MEAN CORPUSCULAR HEMOGLOBIN 29.3 pg (29.0-33.0); MEAN CORPUSCULAR HGB CONC 30.5 g/dl (32.0-37.0); MEAN CORPUSCULAR VOLUME 96.1 fl (82.0-101.0); MONOCYTE # 1.3 10^3/ul (0.3-0.9); NEUTROPHIL # 8.7 10^3/ul (1.6-7.5); NEUTROPHILS % 75.7 % (39.0-77.0); PLATELET COUNT 210 10^3/UL (140-415); RED BLOOD COUNT 3.07 10^6/ul (4.70-6.10); RED CELL DISTRIBUTION WIDTH 17.2 % (11.5-14.5)
[2018-07-17 05:28] LABS: WHITE BLOOD COUNT 11.5 10^3/ul (4.8-10.8)
[2018-07-17] MEDS: PROPOFOL 100 ML IV ×3 (05:30→23:33)
[2018-07-17 05:55] LABS: ALANINE AMINOTRANSFERASE 23 IU/L (13-69); ALBUMIN 3.3 g/dl (3.3-4.9); ALKALINE PHOSPHATASE 133 IU/L (42-121); ANION GAP 18 (5-13); ASPARTATE AMINO TRANSFERASE 44 IU/L (15-46); BILIRUBIN,INDIRECT 0.3 mg/dl (0-1.1); BILIRUBIN,TOTAL 0.3 mg/dl (0.2-1.3); BLOOD UREA NITROGEN 57 mg/dl (7-20); CALCIUM 8.8 mg/dl (8.4-10.2); CARBON DIOXIDE 23 mmol/L (21-31); CHLORIDE 96 mmol/L (97-110); CREATININE 6.51 mg/dl (0.61-1.24); GLUCOSE 175 mg/dl (70-220); MAGNESIUM 2.5 mg/dl (1.7-2.5); PHOSPHORUS 6.4 mg/dl (2.5-4.9); POTASSIUM 4.8 mmol/L (3.5-5.1); SODIUM 137 mmol/L (135-144); TOTAL PROTEIN 6.6 g/dl (6.1-8.1)
[2018-07-17] MEDS: IBUPROFEN 400 MG TAB NGT ×3 (05:55→21:53)
[2018-07-17] MEDS: LANSOPRAZOLE 30 MG CAP GTB ×2 (05:55→18:00)
[2018-07-17] MEDS: ASPIRIN 325 MG TAB PO (08:40)
[2018-07-17] MEDS: MEROPENEM 500MG/50 ML (PMX) 50 ML IVPB ×2 (08:40→21:25)
[2018-07-17] MEDS: BALSAM PERU/CASTOR OIL 60 GM TUBE TOP ×2 (08:41→21:25)
[2018-07-17] MEDS: ASPIRIN 300 MG SUPP PR (12:18)
[2018-07-17] MEDS: DEXTROSE 5%-0.45% NACL 1,000 ML IV (12:18)
[2018-07-17] MEDS: EPOETIN ALFA-EPBX (ESRD) 10,000 UNIT/ML VIAL SC (18:32)
[2018-07-17] MEDS: ATORVASTATIN 80 MG TAB PO (21:00)
[2018-07-18] MEDS: INSULIN ASPART [NOVOLOG] 3 ML PEN SC ×6 (00:56→21:10)
[2018-07-18] MEDS: IBUPROFEN 400 MG TAB NGT ×2 (04:58→14:03)
[2018-07-18] MEDS: LANSOPRAZOLE 30 MG CAP GTB ×2 (04:58→17:31)
[2018-07-18 05:28] LABS: ADD MAN DIFF? NO
[2018-07-18 05:35] LABS: BASOPHILS % 0.3 % (0.0-2.0); EOSINOPHILS # 0.4 10^3/ul (0.0-0.5); EOSINOPHILS % 3.5 % (0.0-7.0); HEMATOCRIT 29.2 % (42.0-52.0); HEMOGLOBIN 9.2 g/dl (14.0-18.0); LYMPHOCYTES # 0.8 10^3/ul (0.8-2.9); MEAN CORPUSCULAR HEMOGLOBIN 29.7 pg (29.0-33.0); MEAN CORPUSCULAR HGB CONC 31.5 g/dl (32.0-37.0); MEAN CORPUSCULAR VOLUME 94.2 fl (82.0-101.0); MEAN PLATELET VOLUME 10.8 fl (7.4-10.4); MONOCYTE # 1.2 10^3/ul (0.3-0.9); MONOCYTES % 11.8 % (0.0-11.0); NEUTROPHIL # 7.7 10^3/ul (1.6-7.5); NEUTROPHILS % 75.4 % (39.0-77.0); PLATELET COUNT 236 10^3/UL (140-415); RED CELL DISTRIBUTION WIDTH 16.7 % (11.5-14.5)
[2018-07-18 05:35] LABS: WHITE BLOOD COUNT 10.2 10^3/ul (4.8-10.8)
[2018-07-18] MEDS: DEXTROSE 5%-0.45% NACL 1,000 ML IV ×2 (05:48→08:36)
[2018-07-18 06:06] LABS: ANION GAP 16 (5-13); BLOOD UREA NITROGEN 74 mg/dl (7-20); CALCIUM 8.7 mg/dl (8.4-10.2); CARBON DIOXIDE 23 mmol/L (21-31); CHLORIDE 100 mmol/L (97-110); CREATININE 8.13 mg/dl (0.61-1.24); GLUCOSE 195 mg/dl (70-220); MAGNESIUM 2.8 mg/dl (1.7-2.5); PHOSPHORUS 6.9 mg/dl (2.5-4.9); POTASSIUM 4.2 mmol/L (3.5-5.1); SODIUM 139 mmol/L (135-144)
[2018-07-18] MEDS: ASPIRIN 300 MG SUPP PR (08:39)
[2018-07-18] MEDS: MEROPENEM 500MG/50 ML (PMX) 50 ML IVPB ×2 (08:47→21:00)
[2018-07-18] MEDS: BALSAM PERU/CASTOR OIL 60 GM TUBE TOP ×2 (08:47→20:58)
[2018-07-18] MEDS: ASPIRIN 325 MG TAB PO (10:09)
[2018-07-18] MEDS: METOPROLOL 50 MG TAB PO ×2 (17:32→23:16)
[2018-07-18] MEDS: INSULIN GLARGINE [LANTus] (100 UNITS/ML) SYG SC (20:00)
[2018-07-18] MEDS: ATORVASTATIN 80 MG TAB PO (20:58)
[2018-07-18] MEDS: IBUPROFEN 200 MG TAB NGT (22:00)
[2018-07-19] MEDS: LANSOPRAZOLE 30 MG CAP GTB ×2 (05:16→17:26)
[2018-07-19] MEDS: IBUPROFEN 200 MG TAB NGT ×3 (06:00→22:00)
[2018-07-19 06:21] LABS: ADD MAN DIFF? NO
[2018-07-19 06:29] LABS: BASOPHILS % 0.4 % (0.0-2.0); EOSINOPHILS # 0.3 10^3/ul (0.0-0.5); EOSINOPHILS % 2.9 % (0.0-7.0); HEMATOCRIT 29.6 % (42.0-52.0); HEMOGLOBIN 9.2 g/dl (14.0-18.0); LYMPHOCYTES # 1.1 10^3/ul (0.8-2.9); LYMPHOCYTES % 10.9 % (15.0-51.0); MEAN CORPUSCULAR HEMOGLOBIN 29.2 pg (29.0-33.0); MEAN CORPUSCULAR HGB CONC 31.1 g/dl (32.0-37.0); MONOCYTE # 1.1 10^3/ul (0.3-0.9); MONOCYTES % 11.2 % (0.0-11.0); NEUTROPHIL # 7.5 10^3/ul (1.6-7.5); NEUTROPHILS % 73.6 % (39.0-77.0); PLATELET COUNT 241 10^3/UL (140-415); RED BLOOD COUNT 3.15 10^6/ul (4.70-6.10); RED CELL DISTRIBUTION WIDTH 16.6 % (11.5-14.5)
[2018-07-19 06:29] LABS: WHITE BLOOD COUNT 10.2 10^3/ul (4.8-10.8)
[2018-07-19] MEDS: DEXTROSE 5%-0.45% NACL 1,000 ML IV (06:39)
[2018-07-19 06:59] LABS: ANION GAP 17 (5-13); BLOOD UREA NITROGEN 84 mg/dl (7-20); CALCIUM 8.6 mg/dl (8.4-10.2); CARBON DIOXIDE 24 mmol/L (21-31); CHLORIDE 98 mmol/L (97-110); CREATININE 9.03 mg/dl (0.61-1.24); GLUCOSE 193 mg/dl (70-220); MAGNESIUM 2.7 mg/dl (1.7-2.5); PHOSPHORUS 6.8 mg/dl (2.5-4.9); SODIUM 139 mmol/L (135-144)
[2018-07-19] MEDS: INSULIN ASPART [NOVOLOG] 3 ML PEN SC ×4 (08:03→20:43)
[2018-07-19] MEDS: HEPARIN 1000 UNITS/ML 10 ML INJ CATHETER (10:21)
[2018-07-19] MEDS: MEROPENEM 500MG/50 ML (PMX) 50 ML IVPB (11:13)
[2018-07-19] MEDS: ASPIRIN 325 MG TAB PO (11:13)
[2018-07-19] MEDS: METOPROLOL 50 MG TAB PO ×2 (11:14→20:32)
[2018-07-19] MEDS: BALSAM PERU/CASTOR OIL 60 GM TUBE TOP ×2 (11:14→20:31)
[2018-07-19] MEDS: EPOETIN ALFA-EPBX (ESRD) 10,000 UNIT/ML VIAL SC (17:37)
[2018-07-19] MEDS: ATORVASTATIN 80 MG TAB PO (20:31)
[2018-07-19] MEDS: INSULIN GLARGINE [LANTus] (100 UNITS/ML) SYG SC (20:43)
[2018-07-20] MEDS: IBUPROFEN 200 MG TAB NGT ×3 (05:17→22:00)
[2018-07-20] MEDS: LANSOPRAZOLE 30 MG CAP GTB ×2 (05:17→17:10)
[2018-07-20 05:38] LABS: ADD MAN DIFF? NO
[2018-07-20 05:46] LABS: WHITE BLOOD COUNT 10.1 10^3/ul (4.8-10.8)
[2018-07-20 05:46] LABS: BASOPHIL # 0.1 10^3/ul (0.0-0.1); BASOPHILS % 0.5 % (0.0-2.0); EOSINOPHILS # 0.3 10^3/ul (0.0-0.5); EOSINOPHILS % 3.2 % (0.0-7.0); HEMOGLOBIN 9.3 g/dl (14.0-18.0); LYMPHOCYTES # 1.1 10^3/ul (0.8-2.9); MEAN CORPUSCULAR HEMOGLOBIN 29.1 pg (29.0-33.0); MEAN CORPUSCULAR VOLUME 93.8 fl (82.0-101.0); MEAN PLATELET VOLUME 10.8 fl (7.4-10.4); MONOCYTE # 1.1 10^3/ul (0.3-0.9); MONOCYTES % 10.9 % (0.0-11.0); NEUTROPHIL # 7.4 10^3/ul (1.6-7.5); NEUTROPHILS % 73.5 % (39.0-77.0); PLATELET COUNT 245 10^3/UL (140-415); RED CELL DISTRIBUTION WIDTH 16.7 % (11.5-14.5)
[2018-07-20 06:13] LABS: ANION GAP 16 (5-13); BLOOD UREA NITROGEN 67 mg/dl (7-20); CALCIUM 8.4 mg/dl (8.4-10.2); CARBON DIOXIDE 24 mmol/L (21-31); CHLORIDE 99 mmol/L (97-110); CREATININE 7.76 mg/dl (0.61-1.24); GLUCOSE 157 mg/dl (70-220); MAGNESIUM 2.6 mg/dl (1.7-2.5); PHOSPHORUS 6.2 mg/dl (2.5-4.9); POTASSIUM 4.1 mmol/L (3.5-5.1); SODIUM 139 mmol/L (135-144)
[2018-07-20] MEDS ORDERED: EPINEPHrine 0.1 MG/ML SYG (07:00)
[2018-07-20] MEDS: INSULIN ASPART [NOVOLOG] 3 ML PEN SC ×4 (08:03→21:00)
[2018-07-20] MEDS: ASPIRIN 325 MG TAB PO (08:19)
[2018-07-20] MEDS: METOPROLOL 50 MG TAB PO ×2 (08:19→22:37)
[2018-07-20] MEDS: SEVELAMER CARBONATE 800 MG TABLET PO ×2 (12:02→17:10)
[2018-07-20] MEDS: BALSAM PERU/CASTOR OIL 60 GM TUBE TOP ×2 (14:54→21:00)
[2018-07-20] MEDS: INSULIN GLARGINE [LANTus] (100 UNITS/ML) SYG SC (20:42)
[2018-07-20] MEDS: ATORVASTATIN 80 MG TAB PO (22:37)
[2018-07-20] MEDS: DEXTROSE 5%-0.45% NACL 1,000 ML IV (22:38)
[2018-07-21] MEDS: LANSOPRAZOLE 30 MG CAP GTB ×2 (05:29→17:30)
[2018-07-21] MEDS: IBUPROFEN 200 MG TAB NGT ×2 (05:29→14:00)
[2018-07-21] MEDS ORDERED: ACETAMINOPHEN 650 MG SUPP PR (07:30)
[2018-07-21] MEDS: INSULIN ASPART [NOVOLOG] 3 ML PEN SC ×4 (07:56→20:50)
[2018-07-21] MEDS: DEXTROSE 5%-0.45% NACL 1,000 ML IV (07:56)
[2018-07-21] MEDS ORDERED: METOPROLOL 5 MG INJ IV (08:00)
[2018-07-21] MEDS: SEVELAMER CARBONATE 800 MG TABLET PO ×3 (08:00→17:31)
[2018-07-21] MEDS: METOPROLOL 50 MG TAB PO ×2 (08:13→20:46)
[2018-07-21] MEDS: ASPIRIN 325 MG TAB PO (08:14)
[2018-07-21] MEDS: HEPARIN 1000 UNITS/ML 10 ML INJ CATHETER (10:49)
[2018-07-21] MEDS: ASPIRIN 300 MG SUPP PR (11:59)
[2018-07-21] MEDS: BALSAM PERU/CASTOR OIL 60 GM TUBE TOP ×2 (13:35→20:50)
[2018-07-21] MEDS: EPOETIN ALFA-EPBX (ESRD) 10,000 UNIT/ML VIAL SC (17:07)
[2018-07-21] MEDS: ATORVASTATIN 80 MG TAB PO (20:46)
[2018-07-21] MEDS: INSULIN GLARGINE [LANTus] (100 UNITS/ML) SYG SC (20:46)
[2018-07-21] MEDS: LORAZEPAM 2 MG INJ IV (20:55)
[2018-07-22] MEDS: LANSOPRAZOLE 30 MG CAP GTB ×2 (06:00→17:08)
[2018-07-22 06:22] LABS: ADD MAN DIFF? NO
[2018-07-22 06:26] LABS: WHITE BLOOD COUNT 8.8 10^3/ul (4.8-10.8)
[2018-07-22 06:26] LABS: BASOPHIL # 0.1 10^3/ul (0.0-0.1); BASOPHILS % 0.6 % (0.0-2.0); EOSINOPHILS # 0.2 10^3/ul (0.0-0.5); EOSINOPHILS % 2.3 % (0.0-7.0); HEMATOCRIT 33.5 % (42.0-52.0); HEMOGLOBIN 10.1 g/dl (14.0-18.0); LYMPHOCYTES % 10.8 % (15.0-51.0); MEAN CORPUSCULAR HEMOGLOBIN 28.9 pg (29.0-33.0); MEAN CORPUSCULAR HGB CONC 30.1 g/dl (32.0-37.0); MEAN PLATELET VOLUME 10.7 fl (7.4-10.4); MONOCYTE # 0.9 10^3/ul (0.3-0.9); NEUTROPHIL # 6.7 10^3/ul (1.6-7.5); NEUTROPHILS % 75.7 % (39.0-77.0); PLATELET COUNT 274 10^3/UL (140-415); RED BLOOD COUNT 3.49 10^6/ul (4.70-6.10); RED CELL DISTRIBUTION WIDTH 17.1 % (11.5-14.5)
[2018-07-22 06:46] LABS: ANION GAP 15 (5-13); BLOOD UREA NITROGEN 53 mg/dl (7-20); CALCIUM 8.5 mg/dl (8.4-10.2); CARBON DIOXIDE 26 mmol/L (21-31); CHLORIDE 102 mmol/L (97-110); CREATININE 6.35 mg/dl (0.61-1.24); GLUCOSE 159 mg/dl (70-220); MAGNESIUM 2.4 mg/dl (1.7-2.5); PHOSPHORUS 5.7 mg/dl (2.5-4.9); POTASSIUM 4.2 mmol/L (3.5-5.1); SODIUM 143 mmol/L (135-144)
[2018-07-22] MEDS: SEVELAMER CARBONATE 800 MG TABLET PO ×3 (07:58→17:08)
[2018-07-22] MEDS: BALSAM PERU/CASTOR OIL 60 GM TUBE TOP ×2 (07:59→21:48)
[2018-07-22] MEDS: METOPROLOL 50 MG TAB PO ×2 (07:59→21:37)
[2018-07-22] MEDS: DEXTROSE 5%-0.45% NACL 1,000 ML IV (08:00)
[2018-07-22] MEDS: ASPIRIN 300 MG SUPP PR (08:14)
[2018-07-22] MEDS: INSULIN ASPART [NOVOLOG] 3 ML PEN SC ×4 (08:19→21:00)
[2018-07-22] MEDS: BARIUM SULFATE 135 ML (E-Z HD) PO (11:51)
[2018-07-22] MEDS: ATORVASTATIN 80 MG TAB PO (21:37)
[2018-07-22] MEDS: INSULIN GLARGINE [LANTus] (100 UNITS/ML) SYG SC (21:48)
[2018-07-23] MEDS: LANSOPRAZOLE 30 MG CAP GTB ×2 (05:36→17:53)
[2018-07-23 06:24] LABS: ADD MAN DIFF? NO
[2018-07-23 06:34] LABS: BASOPHIL # 0.1 10^3/ul (0.0-0.1); BASOPHILS % 0.9 % (0.0-2.0); EOSINOPHILS # 0.2 10^3/ul (0.0-0.5); HEMATOCRIT 32.9 % (42.0-52.0); HEMOGLOBIN 10.1 g/dl (14.0-18.0); LYMPHOCYTES % 12.1 % (15.0-51.0); MEAN CORPUSCULAR HEMOGLOBIN 29.6 pg (29.0-33.0); MEAN CORPUSCULAR HGB CONC 30.7 g/dl (32.0-37.0); MEAN CORPUSCULAR VOLUME 96.5 fl (82.0-101.0); MEAN PLATELET VOLUME 10.7 fl (7.4-10.4); MONOCYTE # 0.8 10^3/ul (0.3-0.9); MONOCYTES % 9.9 % (0.0-11.0); NEUTROPHILS % 73.5 % (39.0-77.0); PLATELET COUNT 259 10^3/UL (140-415); RED BLOOD COUNT 3.41 10^6/ul (4.70-6.10); RED CELL DISTRIBUTION WIDTH 16.5 % (11.5-14.5)
[2018-07-23 06:34] LABS: WHITE BLOOD COUNT 8.1 10^3/ul (4.8-10.8)
[2018-07-23 06:52] LABS: ANION GAP 16 (5-13); BLOOD UREA NITROGEN 64 mg/dl (7-20); CALCIUM 8.6 mg/dl (8.4-10.2); CARBON DIOXIDE 25 mmol/L (21-31); CHLORIDE 102 mmol/L (97-110); CREATININE 7.55 mg/dl (0.61-1.24); GLUCOSE 172 mg/dl (70-220); MAGNESIUM 2.4 mg/dl (1.7-2.5); SODIUM 143 mmol/L (135-144)
[2018-07-23] MEDS: DEXTROSE 5%-0.45% NACL 1,000 ML IV (07:30)
[2018-07-23] MEDS: SEVELAMER CARBONATE 800 MG TABLET PO ×3 (08:00→17:53)
[2018-07-23] MEDS: METOPROLOL 50 MG TAB PO ×2 (08:27→21:24)
[2018-07-23] MEDS: BALSAM PERU/CASTOR OIL 60 GM TUBE TOP ×2 (08:27→21:39)
[2018-07-23] MEDS: ASPIRIN 300 MG SUPP PR ×2 (08:27→12:03)
[2018-07-23] MEDS: INSULIN ASPART [NOVOLOG] 3 ML PEN SC ×4 (08:34→21:00)
[2018-07-23] MEDS ORDERED: SOD CHLORIDE 0.9% 1,000 ML IV (12:44)
[2018-07-23] MEDS ORDERED: HEPARIN 1000 UNITS/ML 10 ML INJ CATHETER (13:00)
[2018-07-23] MEDS ORDERED: SODIUM CHLORIDE 0.9% 1L BAG IV (13:00)
[2018-07-23] MEDS ORDERED: ALBUMIN HUMAN 25% 100 ML IV (13:00)
[2018-07-23] MEDS: ALTEPLASE (CATHFLO) 2 MG INJ CATHETER ×2 (15:11→18:54)
[2018-07-23] MEDS: ATORVASTATIN 80 MG TAB PO (21:24)
[2018-07-23] MEDS: INSULIN GLARGINE [LANTus] (100 UNITS/ML) SYG SC (21:37)
[2018-07-24] MEDS: DEXTROSE 5%-0.45% NACL 1,000 ML IV ×2 (01:51→07:30)
[2018-07-24] MEDS: LANSOPRAZOLE 30 MG CAP GTB ×2 (05:04→17:20)
[2018-07-24 05:30] LABS: ADD MAN DIFF? NO
[2018-07-24 05:40] LABS: WHITE BLOOD COUNT 8.2 10^3/ul (4.8-10.8)
[2018-07-24 05:40] LABS: BASOPHIL # 0.1 10^3/ul (0.0-0.1); BASOPHILS % 0.7 % (0.0-2.0); EOSINOPHILS # 0.2 10^3/ul (0.0-0.5); EOSINOPHILS % 2.8 % (0.0-7.0); HEMATOCRIT 34.5 % (42.0-52.0); HEMOGLOBIN 10.6 g/dl (14.0-18.0); LYMPHOCYTES # 1.2 10^3/ul (0.8-2.9); LYMPHOCYTES % 14.3 % (15.0-51.0); MEAN CORPUSCULAR HGB CONC 30.7 g/dl (32.0-37.0); MEAN CORPUSCULAR VOLUME 94.5 fl (82.0-101.0); MEAN PLATELET VOLUME 10.9 fl (7.4-10.4); MONOCYTE # 0.7 10^3/ul (0.3-0.9); NEUTROPHIL # 5.9 10^3/ul (1.6-7.5); NEUTROPHILS % 72.5 % (39.0-77.0); PLATELET COUNT 262 10^3/UL (140-415); RED BLOOD COUNT 3.65 10^6/ul (4.70-6.10); RED CELL DISTRIBUTION WIDTH 16.3 % (11.5-14.5)
[2018-07-24 06:02] LABS: ANION GAP 15 (5-13); BLOOD UREA NITROGEN 56 mg/dl (7-20); CALCIUM 8.3 mg/dl (8.4-10.2); CARBON DIOXIDE 22 mmol/L (21-31); CHLORIDE 101 mmol/L (97-110); CREATININE 6.65 mg/dl (0.61-1.24); GLUCOSE 292 mg/dl (70-220); MAGNESIUM 2.2 mg/dl (1.7-2.5); PHOSPHORUS 5.5 mg/dl (2.5-4.9); POTASSIUM 4.1 mmol/L (3.5-5.1); SODIUM 138 mmol/L (135-144)
[2018-07-24] MEDS: SEVELAMER CARBONATE 800 MG TABLET PO ×2 (08:00→12:00)
[2018-07-24] MEDS: ASPIRIN 300 MG SUPP PR (08:21)
[2018-07-24] MEDS: METOPROLOL 50 MG TAB PO ×2 (08:21→20:11)
[2018-07-24] MEDS: BALSAM PERU/CASTOR OIL 60 GM TUBE TOP ×2 (08:21→21:26)
[2018-07-24] MEDS: INSULIN ASPART [NOVOLOG] 3 ML PEN SC ×4 (08:37→21:24)
[2018-07-24] MEDS: ALTEPLASE (CATHFLO) 2 MG INJ CATHETER (15:04)
[2018-07-24] MEDS: SEVELAMER CARBONATE 0.8 GM PKT GTB (17:20)
[2018-07-24] MEDS: EPOETIN ALFA-EPBX (ESRD) 10,000 UNIT/ML VIAL SC (17:21)
[2018-07-24] MEDS: ATORVASTATIN 80 MG TAB PO (20:06)
[2018-07-24] MEDS: INSULIN GLARGINE [LANTus] (100 UNITS/ML) SYG SC (21:23)
[2018-07-25 05:59] LABS: ADD MAN DIFF? NO
[2018-07-25 06:03] LABS: BASOPHIL # 0.1 10^3/ul (0.0-0.1); BASOPHILS % 0.9 % (0.0-2.0); EOSINOPHILS # 0.2 10^3/ul (0.0-0.5); EOSINOPHILS % 2.3 % (0.0-7.0); HEMATOCRIT 34.3 % (42.0-52.0); HEMOGLOBIN 10.7 g/dl (14.0-18.0); LYMPHOCYTES # 1.4 10^3/ul (0.8-2.9); LYMPHOCYTES % 14.7 % (15.0-51.0); MEAN CORPUSCULAR HEMOGLOBIN 28.8 pg (29.0-33.0); MEAN CORPUSCULAR HGB CONC 31.2 g/dl (32.0-37.0); MEAN CORPUSCULAR VOLUME 92.2 fl (82.0-101.0); MEAN PLATELET VOLUME 10.7 fl (7.4-10.4); MONOCYTE # 0.8 10^3/ul (0.3-0.9); MONOCYTES % 8.4 % (0.0-11.0); NEUTROPHIL # 6.8 10^3/ul (1.6-7.5); NEUTROPHILS % 73.4 % (39.0-77.0); PLATELET COUNT 254 10^3/UL (140-415); RED BLOOD COUNT 3.72 10^6/ul (4.70-6.10)
[2018-07-25 06:03] LABS: WHITE BLOOD COUNT 9.3 10^3/ul (4.8-10.8)
[2018-07-25] MEDS: LANSOPRAZOLE 30 MG CAP GTB ×2 (06:05→17:09)
[2018-07-25 07:04] LABS: ANION GAP 16 (5-13); BLOOD UREA NITROGEN 69 mg/dl (7-20); CALCIUM 8.5 mg/dl (8.4-10.2); CARBON DIOXIDE 22 mmol/L (21-31); CHLORIDE 102 mmol/L (97-110); GLUCOSE 163 mg/dl (70-220); MAGNESIUM 2.2 mg/dl (1.7-2.5); PHOSPHORUS 6.9 mg/dl (2.5-4.9); POTASSIUM 4.2 mmol/L (3.5-5.1); SODIUM 140 mmol/L (135-144)
[2018-07-25] MEDS: METOPROLOL 50 MG TAB PO (08:09)
[2018-07-25] MEDS: SEVELAMER CARBONATE 0.8 GM PKT GTB ×3 (08:09→17:09)
[2018-07-25] MEDS: BALSAM PERU/CASTOR OIL 60 GM TUBE TOP (08:10)
[2018-07-25] MEDS: INSULIN ASPART [NOVOLOG] 3 ML PEN SC ×3 (08:15→17:13)
[2018-07-25] MEDS: ASPIRIN 325 MG TAB PO (10:33)
[2018-07-25] MEDS: ACETAMINOPHEN 325 MG TAB PO (12:25)
== END 2018-07-25 19:45 | DRG 233 ==
LOC: 6WM 07-18 18:56 → CCL 08:37 → SDS 08:37 → ICU 07-07 12:30 → CCL 12:39 → REC 12:40 → TEL 17:25
PROVIDERS: Internal Medicine Interventional Cardiology
PROC: 4A023N7 Measurement of Cardiac Sampling and Pressure, Left Heart, Percutaneous Approach (ICD-10-PCS; 2018-07-05 11:00)
PROC: B211YZZ Fluoroscopy of Multiple Coronary Arteries using Other Contrast (ICD-10-PCS; 2018-07-05 11:00)
PROC: 4A033BC Measurement of Arterial Pressure, Coronary, Percutaneous Approach (ICD-10-PCS; 2018-07-05 11:00)
PROC: 021209W Bypass Coronary Artery, Three Arteries from Aorta with Autologous Venous Tissue, Open Approach (ICD-10-PCS; principal; 2018-07-05 11:10)
PROC: 02100Z9 Bypass Coronary Artery, One Artery from Left Internal Mammary, Open Approach (ICD-10-PCS; 2018-07-05 11:10)
PROC: 06BP4ZZ Excision of Right Saphenous Vein, Percutaneous Endoscopic Approach (ICD-10-PCS; 2018-07-05 11:10)
PROC: 5A1955Z Respiratory Ventilation, Greater than 96 Consecutive Hours (ICD-10-PCS; 2018-07-05 11:10)
PROC: 0BH17EZ Insertion of Endotracheal Airway into Trachea, Via Natural or Artificial Opening (ICD-10-PCS; 2018-07-05 11:10)
PROC: 0JPTXXZ Removal of Tunneled Vascular Access Device from Trunk Subcutaneous Tissue and Fascia, External Approach (ICD-10-PCS; 2018-07-05 11:10)
PROC: 02PYX3Z Removal of Infusion Device from Great Vessel, External Approach (ICD-10-PCS; 2018-07-05 11:10)
PROC: 5A1221Z Performance of Cardiac Output, Continuous (ICD-10-PCS; 2018-07-05 11:10)
PROC: 5A1223Z Performance of Cardiac Pacing, Continuous (ICD-10-PCS; 2018-07-05 11:10)
PROC: 06HY33Z Insertion of Infusion Device into Lower Vein, Percutaneous Approach (ICD-10-PCS; 2018-07-05 11:10)
PROC: 02HV33Z Insertion of Infusion Device into Superior Vena Cava, Percutaneous Approach (ICD-10-PCS; 2018-07-05 11:10)
PROC: 30233K1 Transfusion of Nonautologous Frozen Plasma into Peripheral Vein, Percutaneous Approach (ICD-10-PCS; 2018-07-05 11:10)
PROC: 30233N1 Transfusion of Nonautologous Red Blood Cells into Peripheral Vein, Percutaneous Approach (ICD-10-PCS; 2018-07-05 11:10)
PROC: 30233R1 Transfusion of Nonautologous Platelets into Peripheral Vein, Percutaneous Approach (ICD-10-PCS; 2018-07-05 11:10)
PROC: 0BH17EZ Insertion of Endotracheal Airway into Trachea, Via Natural or Artificial Opening (ICD-10-PCS; 2018-07-05 11:10)
PROC: 5A12012 Performance of Cardiac Output, Single, Manual (ICD-10-PCS; 2018-07-05 11:10)
PROC: 5A1D70Z Performance of Urinary Filtration, Intermittent, Less than 6 Hours Per Day (ICD-10-PCS; 2018-07-05 11:10)
DX: I21.4 Non-ST elevation (NSTEMI) myocardial infarction (principal); I50.33 Acute on chronic diastolic (congestive) heart failure; N18.6 End stage renal disease; R57.0 Cardiogenic shock; G92 Toxic encephalopathy; A41.9 Sepsis, unspecified organism; J69.0 Pneumonitis due to inhalation of food and vomit; R65.21 Severe sepsis with septic shock; I46.9 Cardiac arrest, cause unspecified; J96.01 Acute respiratory failure with hypoxia; J96.92 Respiratory failure, unspecified with hypercapnia; I13.2 Hypertensive heart and chronic kidney disease with heart failure and with stage 5 chronic kidney disease, or end stage renal disease; I31.9 Disease of pericardium, unspecified; J98.11 Atelectasis; D62 Acute posthemorrhagic anemia; G93.1 Anoxic brain damage, not elsewhere classified; D63.1 Anemia in chronic kidney disease; D69.6 Thrombocytopenia, unspecified; E78.5 Hyperlipidemia, unspecified; E11.9 Type 2 diabetes mellitus without complications; E87.5 Hyperkalemia; E83.41 Hypermagnesemia; E87.70 Fluid overload, unspecified; I67.1 Cerebral aneurysm, nonruptured; I25.110 Atherosclerotic heart disease of native coronary artery with unstable angina pectoris; I24.9 Acute ischemic heart disease, unspecified; J44.9 Chronic obstructive pulmonary disease, unspecified; J40 Bronchitis, not specified as acute or chronic; R13.10 Dysphagia, unspecified; Z98.61 Coronary angioplasty status; Z99.2 Dependence on renal dialysis
CPT/HCPCS: 31500; 36430; 36569; 36600; 70450; 70496; 71045; 71250; 74177; 74230; 76937; 80048; 80053; 80202; 82803; 82962; 83605; 83735; 84100; 84484; 85014; 85025; 85610; 85730; 86644; 86850; 86900; 86901; 86920; 86945; 87040-91; 87070; 87081; 87340; 89220; 90935; 92526; 92610; 92611; 92950; 93005; 93306; 93312; 93325; 93458; 93571; 93880; 94002; 94003; 94660; 94770; 95819; 97163; 97530